=== PATIENT | male | born 1980 | race Caucasian/White ===

== ENCOUNTER 2019-09-15 23:37 | Observation (INO) ==
[2019-09-15] MEDS ORDERED: SODIUM CHLORIDE 0.9% 500 ML IV STA (23:59)
[2019-09-15] MEDS ORDERED: PIPERACILLIN/TAZOBACTAM 3,375 MG in SODIUM CHLORIDE 0.9% 100 ML IV STA (23:59)
[2019-09-16 00:48] LABS: Basophils # 0.1 10*3/uL (0.0-0.2); Basophils % 0.5 % (0.0-0.8); Eosinophils # 0.2 10*3/uL (0.0-0.87); Eosinophils % 0.9 % (0.00-10.9); Hemoglobin 16.9 GM/DL (14.0-18.0); Immature Granulocytes % 0.8 %; Immature Granulocytes Absolute 0.19 #; Lymphocytes # 2.2 10*3/uL (1.4-4.0); Lymphocytes % 9.2 % (21.2-54.2); Mean Corpuscular HGB Conc 35.2 GM/DL (32-36); Mean Corpuscular Volume 83.5 FL (87-102); Mean Platelet Volume 10.6 FL (9.6-12.0); Monocytes % 9.4 % (1.7-12.7); Neutrophils % 79.2 % (38.7-73.9); Platelet Count 245 T/CUMM (130-400); Red Blood Count 5.75 MC/CUMM (3.8-5.5); Red Cell Distribution Width 13.7 % (9.3-17.3); White Blood Count 24.1 T/CUMM (4-12)
[2019-09-16 00:59] LABS: PT Patient Result 10.2 SECS (9.8-11.9)
[2019-09-16 01:01] LABS: Alanine Aminotransferase 67 U/L (16-61); Albumin 3.6 G/DL (3.4-5.0); Alkaline Phosphatase 131 U/L (45-117); Amylase 38 U/L (25-115); Aspartate Amino Transferase 27 U/L (0-37); Blood Urea Nitrogen 11 MG/DL (7-18); Calcium 9.1 MG/DL (8.5-10.1); Estimated Glom Filtration Rate 120 ML/MIN; Glucose 355 MG/DL (74-106); Osmolality,Calculated 267.2 MOS/KG (273-304)
[2019-09-16 01:06] LABS: Apearance,Urine CLEAR (Clear); Bilirubin,Urine Negative (Negative); Blood, Urine Negative (Negative); Glucose,Urine (UA) >=500 mg/dL (Negative); Ketones,Urine Negative (Negative); Nitrite,Urine Negative (Negative); Protein,Urine 30 MG/DL; RBC,Urine 1 /HPF (0-4); Urine Color Yellow (Yellow); Urine Urobilinogen < 2.0 EU/DL (0.2-1.0); WBC,Urine <1 /HPF (0-6)
[2019-09-16] MEDS ORDERED: SODIUM CHLORIDE 0.9% 1,500 ML IV STA (01:15)
[2019-09-16] MEDS ORDERED: INSULIN REGULAR 100 UNIT/ML IV STA (01:18)
[2019-09-16 01:38] LABS: Band Neutrophils 2 % (0-10); Eosinophils 2 % (0-10); Lymphocytes 14 % (20-55); Segmented Neutrophils 77 % (50-85)
[2019-09-16 01:39] LABS: Platelet Estimate Normal; Total Cells Counted 100
[2019-09-16] MEDS ORDERED: DEXTROSE 10% 250 ML BAG IV PRN (01:54)
[2019-09-16] MEDS ORDERED: GLUCAGON 1 MG VIAL IM PRN (01:54)
[2019-09-16] MEDS ORDERED: ACETAMINOPHEN 325 MG TABLET PO PRN (01:54)
[2019-09-16] MEDS ORDERED: SODIUM CHLORIDE 0.9% 1,000 ML IV SCH (02:00)
[2019-09-16 02:49] LABS: Sedimentation Rate-Westergren 22 MM/HR (0-15)
[2019-09-16] MEDS: MORPHINE 4 MG/1 ML VIAL IV PRN ×2 (03:18→06:20)
[2019-09-16] MEDS ORDERED: METOPROLOL TARTRATE 5 MG/5 ML VIAL IV ONE (04:34)
[2019-09-16 06:24] LABS: Basophils # 0.1 10*3/uL (0.0-0.2); Basophils % 0.4 % (0.0-0.8); Eosinophils # 0.2 10*3/uL (0.0-0.87); Eosinophils % 0.7 % (0.00-10.9); Hematocrit 42.8 VOL% (42.0-52.0); Hemoglobin 14.8 GM/DL (14.0-18.0); Immature Granulocytes % 0.8 %; Immature Granulocytes Absolute 0.19 #; Lymphocytes # 2.5 10*3/uL (1.4-4.0); Lymphocytes % 10.3 % (21.2-54.2); Mean Corpuscular HGB Conc 34.6 GM/DL (32-36); Mean Corpuscular Volume 84.9 FL (87-102); Mean Platelet Volume 10.4 FL (9.6-12.0); Monocytes % 12.3 % (1.7-12.7); Neutrophils % 75.5 % (38.7-73.9); Platelet Count 213 T/CUMM (130-400); Red Blood Count 5.04 MC/CUMM (3.8-5.5); Red Cell Distribution Width 13.8 % (9.3-17.3); White Blood Count 24.6 T/CUMM (4-12)
[2019-09-16 06:46] LABS: Eosinophils 1 % (0-10); Hypochromasia 1+; Lymphocytes 9 % (20-55); Platelet Estimate Adequate; Segmented Neutrophils 84 % (50-85); Total Cells Counted 100
[2019-09-16 06:47] LABS: Microcytosis Slight
[2019-09-16 07:02] LABS: Albumin 2.9 G/DL (3.4-5.0); Bilirubin,Total 1.4 MG/DL (0.2-1.0); Calcium 8.1 MG/DL (8.5-10.1); Osmolality,Calculated 270.5 MOS/KG (273-304); Total Protein 6.8 G/DL (6.4-8.3)
[2019-09-16] MEDS ORDERED: PIPERACILLIN/TAZOBACTAM 3,375 MG in SODIUM CHLORIDE 0.9% 100 ML IV SCH (08:00)
[2019-09-16] MEDS: INSULIN REGULAR 100 UNIT/ML SUBCUT SCH ×2 (08:23→12:57)
[2019-09-16 12:59] VITALS: BP 146/86
== END 2019-09-16 13:30 | disposition left against medical advice (07) ==
LOC: N.ED 23:37 → N.EDINP 09-16 01:54 → INTOOBSV 09-16 01:54 → N.EDINP 09-16 13:11 → N.3E 09-16 13:27
PROVIDERS: ADMIT Internal Medicine; ATTEND Internal Medicine